=== PATIENT | male | born 1960 | race American Indian/Alaskan Native ===

== ENCOUNTER 2017-09-01 18:17 | Emergency (ER) | payer OTHER ==
[~2017-09-01] VITALS: Ht 180.3 cm; Wt 162.4 kg
[~2017-09-01 18:17] MED LIST: AMLODIPINE BESY10 MG PO; ASCORBIC ACID500 M3 PO; ASPIRIN EC81 MG PO; AZITHROMYCIN250 MG PO; BLOOD PRESSURE1 EAC1 MISC; CALCIUM 600 +1 EAC3 PO; CARVEDILOL25 MG PO; CRESTOR20 MG PO; CYCLOBENZAPRINE5 MG PO; DILTIAZEM ER240 MG PO; DILTIAZEM HCL120 MG PO; DOXAZOSIN MESYLA4 MG PO; FERROUS SULFAT325 MG PO; FLUTICASONE PRO16 GM NS; FOLIC ACID1 MG PO; GABAPENTIN300 MG PO; JANUMET 50-1,01 EACH PO; JANUMET XR 50-1 EAC1 PO; JANUVIA100 MG PO; JANUVIA50 MG PO; LANTUS SOL100 UNIT/1 SUB-Q; LANTUS100 UNITS/ SUB-Q; LORATADINE10 MG PO; METOPROLOL SUCC50 MG PO; NOVOLOG100 UNIT/1 SUB-Q; OMEGA-31000 MG PO; OMEPRAZOLE20 MG PO; PLAVIX75 MG PO; POTASSIUM CHLO10 MEQ PO; PREDNISONE20 MG PO; SPIRONOLACTONE25 MG PO; TAMIFLU75 MG PO; TERBINAFINE HC250 MG PO; TOPAMAX25 M1 PO; TOPAMAX25 MG PO; TOPIRAMATE25 MG PO; TRIAMTERENE-HC1 EAC1 PO; VITAMIN B-121000 MCG PO; VITAMIN C500 M1 PO; VITAMIN C500 MG PO; VITAMIN D34000 UNIT PO
[2017-09-01] MEDS ORDERED: TRAMADOL HCL50 MG PO (19:43)
--- NOTE | 2017-09-02 20:22 | EKG ---
[facility] [address] [facility] [place] [address] Signed Sinus rhythm with occasional premature ventricular complexes Septal infarct , age undetermined Abnormal ECG Confirmed by ADAMA VALERA MD ([id number]) on 09/02/2017 8:21:46 PM Electronically Signed By: ADAMA VALERA MD 09/02/172021 PATIENT NAME: ION HENNESSY JR Electrocardiogram DATE OF : 62 PHYSICIAN: ADAMA VALERA MD REPORT #: [id number] REPORT IS CONFIDENTIAL AND NOT TO BE RELEASED WITHOUT AUTHORIZATION
[2017-09-15] MEDS ORDERED: VICTOZA 2-0.6 MG/0.1 SUB-Q (14:28)
[2017-09-15] MEDS ORDERED: METOPROLOL SUCC25 MG PO (14:29)
[2017-10-13] MEDS ORDERED: BUDESONIDE EC3 MG PO (14:14)
== END 2017-09-01 19:56 | disposition home or self-care (01) ==
LOC: ED 18:17
DX: R07.89 Other chest pain (principal); I25.2 Old myocardial infarction; E66.9 Obesity, unspecified; I25.10 Atherosclerotic heart disease of native coronary artery without angina pectoris; E11.9 Type 2 diabetes mellitus without complications; Z98.890 Other specified postprocedural states; Z88.8 Allergy status to other drugs, medicaments and biological substances; Z79.82 Long term (current) use of aspirin; Z79.899 Other long term (current) drug therapy; Z79.4 Long term (current) use of insulin
CPT/HCPCS: 71020; 80053; 84484; 85025; 93005; 93010; 99284

== ENCOUNTER 2018-11-07 09:46 | Emergency (ER) | payer OTHER ==
[~2018-11-07] VITALS: Ht 180.3 cm; Wt 157.0 kg
[~2018-11-07 09:46] MED LIST changes: +BUDESONIDE EC3 MG PO; +LOMOTIL TABLET1 EACH PO; +METOPROLOL SUCC25 MG PO; +TRAMADOL HCL50 MG PO; +VICTOZA 2-0.6 MG/0.1 SUB-Q
[2018-12-07] MEDS ORDERED: UCERIS9 MG PO (13:58)
== END 2018-11-07 12:22 | disposition home or self-care (01) ==
LOC: ED 09:46
DX: R19.7 Diarrhea, unspecified (principal); E11.9 Type 2 diabetes mellitus without complications; I10 Essential (primary) hypertension; E66.9 Obesity, unspecified; I25.10 Atherosclerotic heart disease of native coronary artery without angina pectoris; Z88.8 Allergy status to other drugs, medicaments and biological substances; Z79.899 Other long term (current) drug therapy; Z79.82 Long term (current) use of aspirin; Z79.4 Long term (current) use of insulin
CPT/HCPCS: 80053; 81001; 82010; 82800; 83690; 85025; 96361; 96374; 99284-25; J2405; J7030